=== PATIENT | female | born 1970 | race Caucasian/White ===

== ENCOUNTER 2024-03-30 09:21 | Outpatient (AMB) | payer OTHER, SELFPAY ==
[2024-03-30 09:28] VITALS: BP 138/70; PULSE 78; BMI 34.6
--- NOTE | 2024-03-30 09:28 | MHC.OFFVIS ---
Vital Signs 03/30/24 09:28 Height 5 ft 2 in Weight 188 lb 14.978 oz BMI 34.6 BP 138/70 Blood Pressure Location Lt brachial Position Sitting Pulse 78 Pulse Source Pulse Oximeter Intake Visit Reasons: Hypothyroidism-confirmed Intake Note: New patient present for Hypothyroidism office visit. Safety Spec Required: No Accompanied by: Self / Same As Patient Allergies No Known Allergies Allergy (Verified 03/30/24 09:32) Medication List - Last Reconciled 03/30/24 by Kendall Gardner MD gabapentin 900 mg PO TID levothyroxine (Synthroid) 150 mcg PO DAILY HPI Comments Details: 53 YO female with who is seen in consultation at the request of his PCP for Hyothyroidism. Was seen by myself in past First diagnosed with Hypothyroidism 28 yrs ago Currently using Synthroid 150 ug . On dose for 2 mos Admits to fatigue, +weight gain,- cold intolerance,+ dry skin, +hair loss, +constipation. There is no hx of hyperlipidemia . Denies obstructive sx of goiter . Denies consuming any kelp or seaweed. Denies taking amiodarone. postmenopausal - hysterectomy 15 yrs a go for endometrosis Biotin: No Family hx of thyroid dx: maternal sise - hypothyroidism Labs: [facility] Medical History (Updated 03/30/24 @ 09:59 by Kendall Gardner MD) Weight gain delivery delivered Hypothyroidism Surgical History (Updated 03/30/24 @ 09:34 by ALFREDO White) H/O: hysterectomy Previous back surgery History of appendectomy Family History (Updated 03/30/24 @ 09:36 by ALFREDO White) Mother Thyroid disease Acute Crohn's disease Father Lupus Osteoarthritis Social History Alcohol intake: former Patient Tobacco Use Status: Former Tobacco user Physical Exam HEENT reveals absence of lid lag , stare or proptosis or eyebrow loss. Thyroid gland measure gms . No nodules or tenderness palpated. There is no cervical adenopathy palpated. Lungs CTA. Heart S1, S2 Reg R/R -M/R/G. Abdominal exam benign. Skin exam reveals absence of dryness or thyroid dermopathy or vitiligo. Nail exam reveals absence of thyroid acropachy or oncholysis. Neurologic exam reveals 2+ reflexes . Muscle Strength is 5/5 proximally. There are no tremors in upper extremities. Assessment & Plan Assessment & Plan (1) Hypothyroidism: Code(s): E03.9 - Hypothyroidism, unspecified Category: Medical Plan: This is a 53-year-old female with a history of primary hypothyroidism being treated with 150 mcg of Synthroid . She appears to be clinically euthyroid. Plan is to check TSH and free T4. We will then adjust levothyroxine accordingly. Will also check 24 hour urine for free cortisol and creatinine considering patient's symptoms of weight gain. Also told patient's speak to primary care provider regarding possible sleep study. Lastly after all the above, may consider initiation of a G LP 1 on follow-up (2) Weight gain: Code(s): R63.5 - Abnormal weight gain Category: Medical Plan: Does not appear to be cushingoid. Would optimize levothyroxine replacement as above. Will also check 24 hour urine for free cortisol and creatinine to rule out Savannah syndrome Orders: Orders Cortisol, Free 24Hr Urine Today R63.5 - Abnormal weight gain Creatinine, 24 Hr Group Today R63.5 - Abnormal weight gain Coding Level of Care Code New Pt Level 4 (03019) Diagnoses Hypothyroidism E03.9 Weight gain R63.5
== END 2024-03-30 10:08 | disposition home or self-care (01) ==
PROVIDERS: Visit Provider Internal Medicine Endocrinology, Diabetes & Metabolism
DX: E03.9 Hypothyroidism, unspecified (principal); R63.5 Abnormal weight gain
CPT/HCPCS: 99204

== ENCOUNTER → 2024-03-30 09:21 | Outpatient (BNVA) | payer BC, SELFPAY | PROVIDERS: Visit Provider Internal Medicine Endocrinology, Diabetes & Metabolism ==

== ENCOUNTER 2024-04-03 12:36 | Outpatient (REF) | payer BC, SELFPAY ==
[2024-04-03 14:03] LABS: Creatinine, mg/dL 65.31
[2024-04-03 14:07] LABS: Free T4 (Free Thyroxine) 0.78 ng/dL (0.71-1.85); Thyroid Stimulating Hormone 1.07 uIU/mL (0.32-4.0)
[2024-04-03 15:47] LABS: Creatinine, 24Hr Urine 0.9 G/Day (1.0-2.0); Total Volume 24 Hour Urine 1450 mL
[2024-04-10 14:03] LABS: Cortisol Free, 24 Hr Urine 18.7 mcg/24 h (4.0-50.0); Creatinine, 24 Hr Urine 1.01 g/24 h (0.50-2.15); Total Volume, 24 Hr Urine 1450 mL
== END 2024-04-03 12:37 | disposition home or self-care (01) ==
LOC: HO.LAB 12:36
PROVIDERS: PCP Internal Medicine; Visit Provider Internal Medicine Endocrinology, Diabetes & Metabolism
DX: R63.5 Abnormal weight gain (principal); E03.9 Hypothyroidism, unspecified
CPT/HCPCS: 36415; 82530; 82570; 84439; 84443

== ENCOUNTER 2024-06-30 09:30 | Outpatient (AMB) | payer BC, SELFPAY ==
--- NOTE | 2024-06-30 09:39 | A.OFFVIS_ITS ---
Vital Signs 06/30/24 09:40 Height 5 ft 2 in Weight 186 lb 8.177 oz BMI 34.1 BP 126/74 Blood Pressure Location Lt brachial Position Sitting Pulse 75 Pulse Source Pulse Oximeter Intake Visit Reasons: Hypothyroidism-lvm Intake Note: Patient present today for Hypothyroidism follow up. Workers Compensation Claims Assistant Required: No Accompanied by: Self / Same As Patient Allergies No Known Allergies Allergy (Verified 06/30/24 09:41) Medication List - Last Reconciled 06/30/24 by Kendall Gardner MD gabapentin 900 mg PO TID ramelteon 8 mg PO BEDTIME Synthroid (levothyroxine) 150 mcg PO DAILY NS HPI Comments Details: 53 YO female with who is seen in consultation at the request of his PCP for Hyothyroidism. Was seen by myself in past First diagnosed with Hypothyroidism 28 yrs ago Currently using Synthroid 150 ug . On dose for 2 mos Admits to fatigue, +weight gain,- cold intolerance,+ dry skin, +hair loss, +constipation. There is no hx of hyperlipidemia . Denies obstructive sx of goiter . Denies consuming any kelp or seaweed. Denies taking amiodarone. postmenopausal - hysterectomy 15 yrs a go for endometrosis Biotin: No Family hx of thyroid dx: maternal sise - hypothyroidism Labs: [facility] Medical History (Updated 03/30/24 @ 09:59 by Kendall Gardner MD) Weight gain delivery delivered Hypothyroidism Surgical History H/O: hysterectomy Previous back surgery History of appendectomy Family History (Updated 03/30/24 @ 09:36 by ALFREDO White) Mother Thyroid disease Acute Crohn's disease Father Lupus Osteoarthritis Social History (Updated 03/30/24 @ 09:37 by ALFREDO White) Alcohol intake: former Patient Tobacco Use Status: Former Tobacco user Physical Exam Vital Signs: BMI result Body Mass Index 34.1 HEENT reveals absence of lid lag , stare or proptosis or eyebrow loss. Thyroid gland measure 15 gms . No nodules or tenderness palpated. There is no cervical adenopathy palpated. Lungs CTA. Heart S1, S2 Reg R/R -M/R/G. Abdominal exam benign. Skin exam reveals absence of dryness or thyroid dermopathy or vitiligo. Nail exam reveals absence of thyroid acropachy or oncholysis. Neurologic exam reveals 2+ reflexes . Muscle Strength is 5/5 proximally. There are no tremors in upper extremities. Assessment & Plan Assessment & Plan (1) Hypothyroidism: Code(s): E03.9 - Hypothyroidism, unspecified Category: Medical Plan: This is a 53-year-old female with a history of primary hypothyroidism being treated with 150 mcg of Synthroid . She appears to be clinically and biochemically euthyroid. Workup for Savannah's was negative Plan is to continue the current therapy. At this point, patient can follow up with her primary care provider returned back to endocrinology as needed Coding Level of Care Code Est Pt Level 3 (41999) Diagnoses Hypothyroidism E03.9
[2024-06-30 09:40] VITALS: BP 126/74; PULSE 75; BMI 34.1
== END 2024-06-30 09:50 | disposition home or self-care (01) ==
LOC: HO.ENCR 09:30
PROVIDERS: Visit Provider Internal Medicine Endocrinology, Diabetes & Metabolism
DX: E03.9 Hypothyroidism, unspecified (principal)
CPT/HCPCS: 99213

== ENCOUNTER → 2024-06-30 09:30 | Outpatient (BNVA) | payer BC, SELFPAY | PROVIDERS: Visit Provider Internal Medicine Endocrinology, Diabetes & Metabolism ==